=== PATIENT | female | born 1945 | race Caucasian/White ===

== ENCOUNTER 2019-10-25 15:55 | Inpatient (IN) | payer MEDICARE, OTHER, SELFPAY ==
[2019-10-25] VITALS (11 sets, daily range): BP systolic 140–187; BP diastolic 80–104; PULSE 97–126; RESP 24–43; TEMP 36.6–37; O2SAT 3–99; BMI 31.2
--- NOTE | 2019-10-25 16:16 | W.ED.SOB ---
Documented by User: Andre Tran DO 10/26/19 06:36 HPI - SOB/Dyspnea General: Chief Complaint: Shortness of Breath/Dyspnea Stated Complaint: SOB Time Seen by Provider: 10/25/19 15:55 History of Present Illness: HPI Narrative: 78-year-old female comes to clinic shortness of breath she reports she is normally on 4 to 6 L at home when she arrived here they put her on a 10 L mass she was turned down to 6 L/min when I came in the room at 6 L/min on a nasal cannula she was still satting 9897% turned her down to 3 L/min she remained at 96 to 98%. She states she has not been cough anything up she denies any fever denies any chest pain. She last used a nebulizer around 7:00 this morning she is albuterol and Atrovent. She reports having a history of interstitial pulmonary fibrosis. MD elicited complaint: shortness of breath and cough Pertinent past history: other (Pulmonary fibrosis) Onset (ago): hour(s) (2-3) Timing: constant Severity: moderate Exacerbating factors: exertion, movement and coughing Relieving factors: oxygen, rest and bronchodilators Known history of: other (Interstitial fibrosis) Associated symptoms: Reports cough; Deny abdominal pain, chest pain, fever(s), nausea, orthopnea or vomiting Treatment prior to arrival: oxygen and bronchodilator Review of Systems Const: Denies: fever(s), chills, body aches, change in appetite, fatigue or malaise ENMT: Denies: throat pain, ear or mastoid pain, nasal discharge or nasal congestion Card: Denies: chest pain, edema, dyspnea on exertion or orthopnea Resp: Denies: dyspnea, productive cough or non-productive cough GI: Denies: abdominal pain, nausea, vomiting, hematemesis, coffee ground emesis, diarrhea, constipation, bloating, hematochezia or melena : Denies: flank pain, difficulty voiding, dysuria, urinary frequency or urinary urgency Skin/Breast: Denies: rash or pruritus PFS ED PFSH: Medical History (Updated 10/25/19 @ 21:41 by Rosa Garg MD) COPD (chronic obstructive pulmonary disease) Hypertension Interstitial pulmonary fibrosis Oxygen dependent 3 L [id number] Surgical History H/O: hysterectomy History of bilateral knee arthroplasty S/P appendectomy S/P cholecystectomy S/P rotator cuff repair Family History (Updated 10/25/19 @ 21:41 by Rosa Garg MD) Other Lung disease Denies family history of Hyperlipidemia Hypertension Social History (Updated 10/25/19 @ 21:41 by Rosa Garg MD) Smoking and tobacco status: never smoked Alcohol intake: never Substance/Drug Use: never Household members: spouse Housing: House Physical Exam Const: COMMON NORMALS: no acute distress GENERAL APPEARANCE: cooperative and comfortable ORIENTATION/CONSCIOUSNESS: Yes awake, Yes oriented to person, Yes oriented to place and Yes oriented to time HENMT: COMMON NORMALS: normocephalic, atraumatic, hearing grossly normal bilaterally, external ears normal, EAC's normal, TM's normal bilaterally, Normal nasal mucous membranes and turbinates present, moist oral mucous membranes and oropharynx normal HEAD & SCALP: normocephalic and atraumatic NOSE: Normal nasal mucous membranes and turbinates present EXTERNAL EAR: Yes external ears normal EXTERNAL AUDITORY CANAL: EAC's normal TYMPANIC MEMBRANE: TM's normal bilaterally Eye: COMMON NORMALS: Equal, round and reactive pupils present, EOMs intact bilaterally, conjunctivae normal and no scleral icterus CONJUNCTIVA: Yes conjunctivae normal PUPIL: Yes Equal, round and reactive pupils present Neck/C-Spine: COMMON NORMALS: full ROM, no lymphadenopathy, supple and no JVD Lymph: LYMPHATIC: no lymphadenopathy noted and no lymphedema noted Resp: AUSCULTATION: wheezes (Scant) expiratory wheezes and diminished lung sounds Cardio: COMMON NORMALS: no JVD, regular rate, regular rhythm and No murmurs present (Cardio) RATE: regular rate RHYTHM: regular rhythm GI: COMMON NORMALS: Soft to palpation and No hepatosplenomegaly present AUSCULTATION: Yes normoactive bowel sounds PALPATION: Yes Soft to palpation, No Tenderness to palpation present (GI), No Guarding due to palpation present (GI) and Yes No hepatosplenomegaly present Extremity: COMMON NORMALS: normal to inspection, capillary refill normal, no clubbing, cyanosis or edema, no calf tenderness and no pedal edema Neuro: SENSORIUM/ORIENTATION: Yes oriented to person, Yes oriented to place and Yes oriented to time Skin: COMMON NORMALS: no rashes or lesions noted GENERAL SKIN EXAM: no rashes or lesions noted Course Vital Signs: Vital signs: Vital Signs Temperature 97.9 F 10/26/19 08:00 Pulse Rate 112 H 10/26/19 08:00 Respiratory Rate 17 10/26/19 08:00 Blood Pressure 137/87 10/26/19 08:00 Pulse Oximetry 91 10/26/19 08:00 MDM - SOB/Dyspnea MDM Narrative: Medical decision making narrative: CTA of the chest as well as second troponin pending at change of shift care turned over to Dr. Darling. Please see his notes for final diagnosis and disposition Lab Data: Labs: Lab Results 10/25/19 10/25/19 10/25/19 Range/Units 16:16 16:50 16:50 WBC 12.6 H (4.0-10.0) 10^3/ uL RBC 5.16 (4.1-5.3) 10^6/u L Hgb 15.4 H (11.5-15.3) g/dL Hct 49.2 H (37.0-47.0) % MCV 95.3 (81-99) fL MCH 29.8 (28.0-34.0) pg MCHC 31.3 (30.0-36.0) g/dL RDW 13.5 (12.1-15.1) % Plt Count 192 (130-400) 10^3/c mm MPV 11.2 H (7.4-10.4) fL Neut % (Auto) 88.3 % Lymph % (Auto) 9.4 % [place] % (Auto) 1.7 % Eos % (Auto) 0.3 % Baso % (Auto) 0.1 % Neut # (Auto) 11.2 H (1.8-7.7) 10^3/u L Lymph # (Auto) 1.2 (0.8-4.8) 10^3/u L [place] # (Auto) 0.2 (0.2-0.9) 10^3/u L Eos # (Auto) 0.0 (0.0-0.8) 10^3/u L Baso # (Auto) 0.0 (0.0-0.1) 10^3/u L Nucleated RBC % (a uto) 0 % Nucleated RBCs # 0.0 /100WBC Specimen Type Arterial Sample Site Radial, left ABG pH 7.44 (7.35-7.45) ABG pCO2 41.8 (35-45) mmHg ABG pO2 73.6 L (80.0-100.0) mmH g ABG HCO3 28.1 H (22-26) mmol/L ABG O2 Saturation 96.0 ABG Base Excess 3.5 H (-2.0-2.0) mmol/ L [place]vy Test Pos A-a O2 Gradient 140.6 H (5-10) mmHg Hematocrit 48.1 H (37-47) % Hgb O2 Saturation 94.8 L (95-100) % Carboxyhemoglobin 0.8 (0.4-20.1) %THgb Methemoglobin 0.5 (0.4-1.5) % Total Hemoglobin 15.7 (12-16) g/dL Sodium 142.0 139 (131-143) mmol/L Potassium 3.9 4.0 (3.5-5.0) mmol/L Glucose 165.0 H 171 H (70-115) mg/dL Ionized Calcium 1.2 (1.1-1.4) mmol/L O2 Delivery Device Nc O2 Liters/Min 3.5 % FiO2 38.0 % Car Lot Attendant ID glc Chloride 100 (98-107) mmol/L Carbon Dioxide 27 (22-29) mmol/L Anion Gap 16.0 (5-19) BUN 13 (8-23) mg/dL Creatinine 0.6 (0.5-0.9) mg/dL Calculated Osmolal ity 288 (285-295) mOsm/k g Calcium 9.9 (8.5-10.5) mg/dL Total Bilirubin 0.3 (0.15-1.2) mg/dL AST 19 (0-32) U/L ALT 17 (0-33) U/L Alkaline Phosphata se 65 (35-105) IU/L Troponin T Baselin e (0-10) ng/L Troponin T 120 Min liz (0-10) ng/L Delta Troponin T (0-10) ABS# Total Protein 7.3 (6.6-8.7) g/dL Albumin 4.0 (3.5-5.2) g/dL Globulin 3.3 (1.3-4.6) g/dL Urine Color (Yellow) Urine Appearance (CLEAR) Urine pH (5-7) Ur Specific Gravit y (1.005-1.030) Urine Protein (Negative) Urine Glucose (UA) (Normal) Urine Ketones (Negative) Urine Blood (Negative) Urine Nitrate (Negative) Urine Bilirubin (NEGATIVE) Urine Urobilinogen (Negative) mg/dL Ur Leukocyte Roseanna ase (Negative) Urine RBC (0-2) /hpf Urine WBC (0-5) /hpf Ur Squamous Epith Cells (0-5) Amorphous Sediment Urine Bacteria (NONE) 10/25/19 10/25/19 10/25/19 Range/Units 16:50 17:04 18:55 WBC (4.0-10.0) 10^3/ uL RBC (4.1-5.3) 10^6/u L Hgb (11.5-15.3) g/dL Hct (37.0-47.0) % MCV (81-99) fL MCH (28.0-34.0) pg MCHC (30.0-36.0) g/dL RDW (12.1-15.1) % Plt Count (130-400) 10^3/c mm MPV (7.4-10.4) fL Neut % (Auto) % Lymph % (Auto) % [place] % (Auto) % Eos % (Auto) % Baso % (Auto) % Neut # (Auto) (1.8-7.7) 10^3/u L Lymph # (Auto) (0.8-4.8) 10^3/u L [place] # (Auto) (0.2-0.9) 10^3/u L Eos # (Auto) (0.0-0.8) 10^3/u L Baso # (Auto) (0.0-0.1) 10^3/u L Nucleated RBC % (a uto) % Nucleated RBCs # /100WBC Specimen Type Sample Site ABG pH (7.35-7.45) ABG pCO2 (35-45) mmHg ABG pO2 (80.0-100.0) mmH g ABG HCO3 (22-26) mmol/L ABG O2 Saturation ABG Base Excess (-2.0-2.0) mmol/ L [place] Test A-a O2 Gradient (5-10) mmHg Hematocrit (37-47) % Hgb O2 Saturation (95-100) % Carboxyhemoglobin (0.4-20.1) %THgb Methemoglobin (0.4-1.5) % Total Hemoglobin (12-16) g/dL Sodium (131-143) mmol/L Potassium (3.5-5.0) mmol/L Glucose (70-115) mg/dL Ionized Calcium (1.1-1.4) mmol/L O2 Delivery Device O2 Liters/Min % FiO2 % Car Lot Attendant ID Chloride (98-107) mmol/L Carbon Dioxide (22-29) mmol/L Anion Gap (5-19) BUN (8-23) mg/dL Creatinine (0.5-0.9) mg/dL Calculated Osmolal ity (285-295) mOsm/k g Calcium (8.5-10.5) mg/dL Total Bilirubin (0.15-1.2) mg/dL AST (0-32) U/L ALT (0-33) U/L Alkaline Phosphata se (35-105) IU/L Troponin T Baselin e 11 H (0-10) ng/L Troponin T 120 Min liz 12.93 H (0-10) ng/L Delta Troponin T 1.93 (0-10) ABS# Total Protein (6.6-8.7) g/dL Albumin (3.5-5.2) g/dL Globulin (1.3-4.6) g/dL Urine Color Straw (Yellow) Urine Appearance Clear (CLEAR) Urine pH 7 (5-7) Ur Specific Gravit y 1.015 (1.005-1.030) Urine Protein Neg (Negative) Urine Glucose (UA) Norm (Normal) Urine Ketones Negative (Negative) Urine Blood 2+ H (Negative) Urine Nitrate Negative (Negative) Urine Bilirubin Neg (NEGATIVE) Urine Urobilinogen Norm (Negative) mg/dL Ur Leukocyte Roseanna ase Negative (Negative) Urine RBC 0-4 H (0-2) /hpf Urine WBC 0-4 H (0-5) /hpf Ur Squamous Epith Cells 0-4 H (0-5) Amorphous Sediment 1+ Urine Bacteria Trace (NONE) Discharge Plan Discharge Admit Provider: Rosa Garg Discharge Date/Time: 10/25/19 22:50 Coding Level of Care Code ED Esthetic Dermatologist for Chg Fwd Exam Comprehensive Documented by User: Flaco Darling, 10/26/19 08:31 HPI - SOB/Dyspnea General: Chief Complaint: Shortness of Breath/Dyspnea Stated Complaint: SOB Time Seen by Provider: 10/25/19 15:55 PFSH ED PFSH: Medical History (Updated 10/25/19 @ 21:41 by Rosa Garg MD) COPD (chronic obstructive pulmonary disease) Hypertension Interstitial pulmonary fibrosis Oxygen dependent 3 L [id number] Surgical History H/O: hysterectomy History of bilateral knee arthroplasty S/P appendectomy S/P cholecystectomy S/P rotator cuff repair Family History (Updated 10/25/19 @ 21:41 by Rosa Garg MD) Other Lung disease Denies family history of Hyperlipidemia Hypertension Social History (Updated 10/25/19 @ 21:41 by Rosa Garg MD) Smoking and tobacco status: never smoked Alcohol intake: never Substance/Drug Use: never Household members: spouse Housing: House Course Consultations: Consultation #1: radha Vital Signs: Vital signs: Vital Signs Temperature 97.9 F 10/26/19 08:00 Pulse Rate 112 H 10/26/19 08:00 Respiratory Rate 17 10/26/19 08:00 Blood Pressure 137/87 10/26/19 08:00 Pulse Oximetry 91 10/26/19 08:00 MDM - SOB/Dyspnea MDM Narrative: Medical decision making narrative: This is a 74-year-old female with significant pulmonary fibrosis history. She presents with chest discomfort and some shortness of breath. No fever. She was checked out to me by Dr. Tran. Chest x-ray shows significant pulmonary fibrosis. Her white blood cell count was mildly elevated. The question was did she have a pneumonia on top of her pulmonary fibrosis, or was this an exacerbation of pulmonary hypertension. CTA was ordered. There is no pulmonary embolus. There is no definite infiltrate. This is likely pulmonary hypertension. She will come in for steroids, diuretics, nitroglycerin, etc. Lab Data: Labs: Lab Results 10/25/19 10/25/19 10/25/19 Range/Units 16:16 16:50 16:50 WBC 12.6 H (4.0-10.0) 10^3/ uL RBC 5.16 (4.1-5.3) 10^6/u L Hgb 15.4 H (11.5-15.3) g/dL Hct 49.2 H (37.0-47.0) % MCV 95.3 (81-99) fL MCH 29.8 (28.0-34.0) pg MCHC 31.3 (30.0-36.0) g/dL RDW 13.5 (12.1-15.1) % Plt Count 192 (130-400) 10^3/c mm MPV 11.2 H (7.4-10.4) fL Neut % (Auto) 88.3 % Lymph % (Auto) 9.4 % [place] % (Auto) 1.7 % Eos % (Auto) 0.3 % Baso % (Auto) 0.1 % Neut # (Auto) 11.2 H (1.8-7.7) 10^3/u L Lymph # (Auto) 1.2 (0.8-4.8) 10^3/u L [place] # (Auto) 0.2 (0.2-0.9) 10^3/u L Eos # (Auto) 0.0 (0.0-0.8) 10^3/u L Baso # (Auto) 0.0 (0.0-0.1) 10^3/u L Nucleated RBC % (a uto) 0 % Nucleated RBCs # 0.0 /100WBC Specimen Type Arterial Sample Site Radial, left ABG pH 7.44 (7.35-7.45) ABG pCO2 41.8 (35-45) mmHg ABG pO2 73.6 L (80.0-100.0) mmH g ABG HCO3 28.1 H (22-26) mmol/L ABG O2 Saturation 96.0 ABG Base Excess 3.5 H (-2.0-2.0) mmol/ L [place] Test Pos A-a O2 Gradient 140.6 H (5-10) mmHg Hematocrit 48.1 H (37-47) % Hgb O2 Saturation 94.8 L (95-100) % Carboxyhemoglobin 0.8 (0.4-20.1) %THgb Methemoglobin 0.5 (0.4-1.5) % Total Hemoglobin 15.7 (12-16) g/dL Sodium 142.0 139 (131-143) mmol/L Potassium 3.9 4.0 (3.5-5.0) mmol/L Glucose 165.0 H 171 H (70-115) mg/dL Ionized Calcium 1.2 (1.1-1.4) mmol/L O2 Delivery Device Nc O2 Liters/Min 3.5 % FiO2 38.0 % Car Lot Attendant ID glc Chloride 100 (98-107) mmol/L Carbon Dioxide 27 (22-29) mmol/L Anion Gap 16.0 (5-19) BUN 13 (8-23) mg/dL Creatinine 0.6 (0.5-0.9) mg/dL Calculated Osmolal ity 288 (285-295) mOsm/k g Calcium 9.9 (8.5-10.5) mg/dL Total Bilirubin 0.3 (0.15-1.2) mg/dL AST 19 (0-32) U/L ALT 17 (0-33) U/L Alkaline Phosphata se 65 (35-105) IU/L Troponin T Baselin e (0-10) ng/L Troponin T 120 Min liz (0-10) ng/L Delta Troponin T (0-10) ABS# Total Protein 7.3 (6.6-8.7) g/dL Albumin 4.0 (3.5-5.2) g/dL Globulin 3.3 (1.3-4.6) g/dL Urine Color (Yellow) Urine Appearance (CLEAR) Urine pH (5-7) Ur Specific Gravit y (1.005-1.030) Urine Protein (Negative) Urine Glucose (UA) (Normal) Urine Ketones (Negative) Urine Blood (Negative) Urine Nitrate (Negative) Urine Bilirubin (NEGATIVE) Urine Urobilinogen (Negative) mg/dL Ur Leukocyte Roseanna ase (Negative) Urine RBC (0-2) /hpf Urine WBC (0-5) /hpf Ur Squamous Epith Cells (0-5) Amorphous Sediment Urine Bacteria (NONE) 10/25/19 10/25/19 10/25/19 Range/Units 16:50 17:04 18:55 WBC (4.0-10.0) 10^3/ uL RBC (4.1-5.3) 10^6/u L Hgb (11.5-15.3) g/dL Hct (37.0-47.0) % MCV (81-99) fL MCH (28.0-34.0) pg MCHC (30.0-36.0) g/dL RDW (12.1-15.1) % Plt Count (130-400) 10^3/c mm MPV (7.4-10.4) fL Neut % (Auto) % Lymph % (Auto) % [place] % (Auto) % Eos % (Auto) % Baso % (Auto) % Neut # (Auto) (1.8-7.7) 10^3/u L Lymph # (Auto) (0.8-4.8) 10^3/u L [place] # (Auto) (0.2-0.9) 10^3/u L Eos # (Auto) (0.0-0.8) 10^3/u L Baso # (Auto) (0.0-0.1) 10^3/u L Nucleated RBC % (a uto) % Nucleated RBCs # /100WBC Specimen Type Sample Site ABG pH (7.35-7.45) ABG pCO2 (35-45) mmHg ABG pO2 (80.0-100.0) mmH g ABG HCO3 (22-26) mmol/L ABG O2 Saturation ABG Base Excess (-2.0-2.0) mmol/ L [place] Test A-a O2 Gradient (5-10) mmHg Hematocrit (37-47) % Hgb O2 Saturation (95-100) % Carboxyhemoglobin (0.4-20.1) %THgb Methemoglobin (0.4-1.5) % Total Hemoglobin (12-16) g/dL Sodium (131-143) mmol/L Potassium (3.5-5.0) mmol/L Glucose (70-115) mg/dL Ionized Calcium (1.1-1.4) mmol/L O2 Delivery Device O2 Liters/Min % FiO2 % Car Lot Attendant ID Chloride (98-107) mmol/L Carbon Dioxide (22-29) mmol/L Anion Gap (5-19) BUN (8-23) mg/dL Creatinine (0.5-0.9) mg/dL Calculated Osmolal ity (285-295) mOsm/k g Calcium (8.5-10.5) mg/dL Total Bilirubin (0.15-1.2) mg/dL AST (0-32) U/L ALT (0-33) U/L Alkaline Phosphata se (35-105) IU/L Troponin T Baselin e 11 H (0-10) ng/L Troponin T 120 Min liz 12.93 H (0-10) ng/L Delta Troponin T 1.93 (0-10) ABS# Total Protein (6.6-8.7) g/dL Albumin (3.5-5.2) g/dL Globulin (1.3-4.6) g/dL Urine Color Straw (Yellow) Urine Appearance Clear (CLEAR) Urine pH 7 (5-7) Ur Specific Gravit y 1.015 (1.005-1.030) Urine Protein Neg (Negative) Urine Glucose (UA) Norm (Normal) Urine Ketones Negative (Negative) Urine Blood 2+ H (Negative) Urine Nitrate Negative (Negative) Urine Bilirubin Neg (NEGATIVE) Urine Urobilinogen Norm (Negative) mg/dL Ur Leukocyte Roseanna ase Negative (Negative) Urine RBC 0-4 H (0-2) /hpf Urine WBC 0-4 H (0-5) /hpf Ur Squamous Epith Cells 0-4 H (0-5) Amorphous Sediment 1+ Urine Bacteria Trace (NONE) Discharge Plan Discharge Admit Provider: Rosa Garg Discharge Date/Time: 10/25/19 22:50 Coding Level of Care Code ED Esthetic Dermatologist for Chg Fwd Exam Comprehensive
--- NOTE | 2019-10-25 16:23 | XRR_ITS ---
PROCEDURE INFORMATION: Exam: XR Chest, 1 View Exam date and time: 10/25/2019 4:34 PM Age: 74 years old Clinical indication: Dyspnea; Additional info: Dyspnea/cough TECHNIQUE: Imaging protocol: XR of the chest Views: 1 view. COMPARISON: No relevant prior studies available. FINDINGS: Lungs: Bilateral diffuse reticulonodular interstitial lung disease. Suspect pulmonary fibrosis. Cannot exclude with confidence underlying interstitial pneumonitis without prior studies available for review. No visible consolidated alveolar airspace disease. Pleural space: Unremarkable. No visible pleural effusion. No visible pneumothorax. Heart/Mediastinum: Cardiac structures and configuration appear unremarkable for age. Bones/joints: Right total shoulder prosthesis. Previous left rotator cuff repair. Age-appropriate degenerative disease. Other findings: No prior studies available for review. XR/XR chest 1V portable [id number] IMPRESSION: Bilateral diffuse reticulonodular interstitial lung disease. Suspect pulmonary fibrosis. Cannot exclude with confidence underlying interstitial pneumonitis without prior studies available for review. No visible consolidated alveolar airspace disease.
--- NOTE | 2019-10-25 16:24 | ECG_ITS ---
[facility] Test Date: 2019-10-25 Pat Name: Manisha Gautam Department: Room: Gender: Female Chart Computer: : 1945 Requested By: Andre Caruso Order Number: [id number] Enmanuel MD: John Moreno M.D. Measurements Intervals [place] Rate: 114 P: 18 CA: 175 QRS: -13 QRSD: 94 T: -6 QT: 378 QTc: 521 Interpretive Statements SINUS TACHYCARDIA POSSIBLE LEFT ATRIAL ENLARGEMENT [-0.1mV P WAVE IN V1/V2] POSSIBLE LEFT VENTRICULAR HYPERTROPHY [VOLTAGE CRITERIA PLUS LAE OR QRS WIDENING] POSSIBLE ANTERIOR MYOCARDIAL INFARCTION , OF INDETERMINATE AGE [30 ms Q WAVE IN V3/V4, OR R < 0.2 mV IN V4] No previous ECG available for comparison Electronically Signed On 10-26-2019 13:47:23 CDT by John Moreno M.D. [id number] f
[2019-10-25 16:26] LABS: ABG PCO2 41.8 mmHg (35-45); ABG PH Result 7.44 (7.35-7.45); Alveolar-Arterial Oxygen Gradi 140.6 mmHg (5-10); Arterial Blood Gas Hematocrit 48.1 % (37-47); Base Excess ABG 3.5 mmol/L (-2.0-2.0); Blood Gas Allen Test Pos; Blood Gas LPM 3.5 %; Blood Gas Operator Identificat glc; Blood Gas Sample Site Radial, left; Blood Gas Sample Type Arterial; Carboxyhemoglobin 0.8 %THgb (0.4-20.1); HCO3 ABG 28.1 mmol/L (22-26); HGB O2 Sat 94.8 % (95-100); Ionized Calcium Level - ABG 1.2 mmol/L (1.1-1.4); Methemoglobin 0.5 % (0.4-1.5); Oxygen Device NC; PO2 ABG 73.6 mmHg (80.0-100.0); Potassium Level - ABG 3.9 mmol/L (3.5-5.0); Total Hemoglobin 15.7 g/dL (12-16)
[2019-10-25] MEDS: ipratropium-albuterol 3 mL Neb INHALATION (16:38)
[2019-10-25 17:04] LABS: Basophils % 0.1 %; Eosinophils % 0.3 %; Hematocrit 49.2 % (37.0-47.0); Hemoglobin 15.4 g/dL (11.5-15.3); Lymphocytes # 1.2 10^3/uL (0.8-4.8); Lymphocytes % 9.4 %; Mean Corpuscular HGB Conc 31.3 g/dL (30.0-36.0); Mean Corpuscular Hemoglobin 29.8 pg (28.0-34.0); Mean Corpuscular Volume 95.3 fL (81-99); Mean Platelet Volume 11.2 fL (7.4-10.4); Monocytes # 0.2 10^3/uL (0.2-0.9); Monocytes % 1.7 %; Neutrophils # 11.2 10^3/uL (1.8-7.7); Neutrophils % 88.3 %; Nucleated Red Blood Cells % 0 %; Platelet Count 192 10^3/cmm (130-400); Red Blood Count 5.16 10^6/uL (4.1-5.3); Red Cell Distribution Width 13.5 % (12.1-15.1); White Blood Count 12.6 10^3/uL (4.0-10.0)
[2019-10-25 17:26] LABS: Alanine Aminotransferase 17 U/L (0-33); Alkaline Phosphatase 65 IU/L (35-105); Aspartate Amino Transferase 19 U/L (0-32); Blood Urea Nitrogen 13 mg/dL (8-23); Calcium 9.9 mg/dL (8.5-10.5); Carbon Dioxide 27 mmol/L (22-29); Chloride 100 mmol/L (98-107); Globulin 3.3 g/dL (1.3-4.6); Glucose 171 mg/dL (65-115); Osmolality Calculated 288 mOsm/kg (285-295); Sodium 139 mmol/L (136-145); Total Bilirubin 0.3 mg/dL (0.15-1.2); Total Protein 7.3 g/dL (6.6-8.7)
[2019-10-25 17:29] LABS: Troponin(5th) Baseline 11 ng/L (0-10)
[2019-10-25 17:45] LABS: Add Urine Microscopic? YES; Bilirubin Urine Neg (NEGATIVE); Blood Urine 2+ (Negative); Glucose Urine UA Norm (Normal); Ketones Urine Negative (Negative); Leukocyte Esterase Urine Negative (Negative); Nitrate Urine Negative (Negative); Protein Urine Neg (Negative); Specific Gravity, Urine 1.015 (1.005-1.030); Urine Appearance Clear (CLEAR); Urine Color Straw (Yellow); Urobilinogen Urine Norm (Negative); pH Urine 7 (5-7)
[2019-10-25 17:52] LABS: Add Urine Culture? No; Amorphous Sediment Urine 1+; Bacteria Urine TRACE; RBC Urine 0-4 /hpf (0-2); Squamous Epithelial Cell Urine 0-4 (0-5); WBC Urine 0-4 /hpf (0-5)
--- NOTE | 2019-10-25 18:24 | ECG_ITS ---
[facility] Test Date: 2019-10-25 Pat Name: Manisha Gautam Department: Room: Gender: Female Manager Of Security: : 1945 Requested By: Andre Caruso Order Number: [id number] Enmanuel MD: John Moreno M.D. Measurements Intervals [place] Rate: 115 P: 5 VT: 148 QRS: -10 QRSD: 78 T: -1 QT: 374 QTc: 519 Interpretive Statements SINUS TACHYCARDIA POSSIBLE LEFT ATRIAL ENLARGEMENT [-0.1mV P WAVE IN V1/V2] POSSIBLE LEFT VENTRICULAR HYPERTROPHY [VOLTAGE CRITERIA PLUS LAE OR QRS WIDENING] ANTERIOR MYOCARDIAL INFARCTION , PROBABLY RECENT [40+ ms Q WAVE AND/OR ST/T ABNORMALITY IN V3/V4] INFERIOR MYOCARDIAL INFARCTION , OF INDETERMINATE AGE [40+ ms Q WAVE AND/OR ST/T ABNORMALITY IN II/aVF] ACUTE [place] Compared to ECG 10/25/2019 16:44:40 No significant changes Electronically Signed On 10-26-2019 14:00:15 CDT by John Moreno M.D. [id number]
--- NOTE | 2019-10-25 18:29 | CTR_ITS ---
PROCEDURE INFORMATION: Exam: CT Angiography Chest With Contrast Exam date and time: 10/25/2019 7:30 PM Age: 74 years old Clinical indication: Shortness of breath; Prior surgery; Surgery date: 6+ months; Surgery type: Shoulder; Patient HX: SOB; Additional info: Abnomral cxr - dyspnea TECHNIQUE: Imaging protocol: Computed tomographic angiography of the chest with intravenous contrast. 3D rendering: MIP and/or 3D reconstructed images were created by the technologist. Radiation optimization: All CT scans at this facility use at least one of these dose optimization techniques: automated exposure control; mA and/or kV adjustment per patient size (includes targeted exams where dose is matched to clinical indication); or iterative reconstruction. Contrast material: OMNI 350; Contrast volume: 95 ml; Contrast route: INTRAVENOUS (IV); COMPARISON: CR XR chest 1V portable [id number] 10/25/2019 4:23 PM RADIATION DOSE METRICS: Total DLP (mGy-cm): 494.75 FINDINGS: Pulmonary arteries: No visible pulmonary embolism/pulmonary arterial thrombus. Pulmonary hypertension. Aorta: The thoracic aorta is nonaneurysmal. Moderate arterial sclerotic disease. Lungs: Advanced centrilobular and panlobular emphysema. Peripheral acinar emphysema. Pulmonary fibrosis. Varicose bronchiectasis right lower lobe. Bibasilar cystic bronchiectasis. Pleural space: Unremarkable. No pneumothorax. No pleural effusion. Heart: Cardiac structures and configuration cardiomegaly. Left ventricular hypertrophy. Coronary artery disease. No visible pericardial effusion. Lymph nodes: Bilateral moderately prominent hilar lymph nodes. Clinical significance indeterminate. Bones/joints: Advanced degenerative disease and degenerative disc disease of the spine with increased thoracic kyphosis. Osteopenia/osteoporosis. No visible acute osseous abnormality. Scoliosis. Soft tissues: Unremarkable for age. CT/CT angio chest PE protcl [id number] IMPRESSION: 1. No visible pulmonary embolism/pulmonary arterial thrombus. 2. Pulmonary hypertension. 3. Extensive chronic lung disease as detailed in text above. 4. Bilateral moderately prominent hilar lymph nodes. Radiation Dose CTDIVOL = (mGy): DLP = 494.75 (mGy-cm)
--- NOTE | 2019-10-25 18:47 | PC.NURSE ---
EKG done at 1845 and shown to ER doctor
[2019-10-25] MEDS: hyDRALAzine 20 mg/mL INJ 1 mL 5 MG IVP (18:57)
[2019-10-25] MEDS: amlodipine 5 mg Tablet PO (18:58)
[2019-10-25 19:26] LABS: Troponin 5 2HR 12.93 ng/L (0-10); Troponin 5 2HR Delta 1.93 ABS# (0-10)
[2019-10-25] MEDS: iohexol 350 mg/mL 100 mL Btl IV (19:45)
[2019-10-25] MEDS: nitroglycerin 1 gm/inch oint Pkt 1 INCH TOPICAL (20:47)
[2019-10-25] MEDS: FUROsemide 10 mg/mL SDV 10mL 60 MG IVP (20:47)
--- NOTE | 2019-10-25 21:02 | PM.HP ---
Providers/Chief Complaint Primary Care Provider: Yonny Arias Chief Complaint: SOB History of Present Illness Manisha Gautam is a 74 year old female who carries diagnosis of pulmonary fibrosis, oxygen dependent COPD 3 L [id number], pulmonary hypertension came in with chief complaint of palpitations. Patient is stating that at home she uses 3 to 4 L, she is leading a sedentary lifestyle, she recently moved from [place]. 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 She has not noticed any fever, sputum production, diarrhea, chest pain. She thinks her shortness of breath is at baseline. Today after her bowel movement she started experiencing extreme anxiety, when she checked her pulse it was persistently in 130s. She did not notice any chest pain, palpitations. She is endorsing to decrease fluid intake. She decided to come to the ED for further evaluation. Diagnostics in the ER revealed persistent sinus tachycardia in 120s, she was hypertensive 160s/90s, CTA chest did not reveal PE, no acute infiltrates, it shows bronchiectasis lung zones, she has been afebrile, she has received DuoNeb and Solu-Medrol. Normal pH Patient is stating that her prednisone has been tapered to 10 mg daily instead of every 6 hours. She mostly stays constipated, has not noticed any bleeding recently. Review of Systems Const: Reports: body aches, change in appetite and fatigue; Denies: fever(s) or chills Eyes: Denies: change in vision ENMT: Denies: throat pain Card: Reports: dyspnea on exertion; Denies: chest pain, palpitations, swelling of feet/ankles, lightheadedness or orthopnea Resp: Reports: dyspnea and non-productive cough GI: Reports: constipation; Denies: abdominal pain, nausea or vomiting : Denies: flank pain Musc: Denies: neck pain Skin/Breast: Denies: rash Neuro: Denies: headache(s) Psych: Reports: anxiety, mood swings and panic attacks Endo: Denies: polyuria Nabil/Lymph: Denies: easy bruising All/Imm: Denies: urticaria Medications/Allergies Home Medications Medication Instructions Recorded Confirmed Last Taken Type aspirin [Aspirin Low Dose] 81 mg PO DAILY 10/25/19 10/25/19 10/25/19 08:00 History buspirone 15 mg PO TID 10/25/19 10/25/19 10/25/19 12:00 History docusate sodium 100 mg PO DAILY 10/25/19 10/25/19 10/25/19 08:00 History elderberry fruit and flower 1 cap PO DAILY 10/25/19 10/25/19 10/25/19 08:00 History metoprolol succinate 25 mg PO DAILY 10/25/19 10/25/19 10/25/19 08:00 History multivit with min-folic acid 200 mcg PO DAILY 10/25/19 10/25/19 10/25/19 08:00 History [Adult Multivitamin Gummies] omeprazole 40 mg PO DAILY 10/25/19 10/25/19 10/25/19 08:00 History prednisone 10 mg PO Q6H 10/25/19 10/25/19 10/25/19 12:00 History turmeric 200 mg PO DAILY 10/25/19 10/25/19 10/25/19 09:00 History Allergies Allergy/AdvReac Type Severity Reaction Status Date / Time Penicillins Allergy Intermediate ALGY-Rash Verified 10/25/19 16:28 PFSH Acute PFSH: Medical History (Updated 10/25/19 @ 21:41 by Rosa Garg MD) COPD (chronic obstructive pulmonary disease) Hypertension Interstitial pulmonary fibrosis Oxygen dependent 3 L [id number] Surgical History H/O: hysterectomy History of bilateral knee arthroplasty S/P appendectomy S/P cholecystectomy S/P rotator cuff repair Family History (Updated 10/25/19 @ 21:41 by Rosa Garg MD) Other Lung disease Denies family history of Hyperlipidemia Hypertension Social History (Updated 10/25/19 @ 21:41 by Rosa Garg MD) Smoking and tobacco status: never smoked Alcohol intake: never Substance/Drug Use: never Household members: spouse Housing: House Vitals/I&O/Wt Last Vital Signs Temp 97.9 F 10/25/19 16:06 Pulse 116 H 10/25/19 20:49 Resp 32 H 10/25/19 20:49 BP 160/90 10/25/19 20:49 Pulse Ox 96 10/25/19 20:49 Weight last 48 hrs Weight 72.575 kg Physical Exam Narrative: EXAM NARRATIVE: Head to toe examination Patient seems very anxious, and dehydrated Dry buccal mucous membrane and cracked lips No active respiratory distress She saturating well on 3 L nasal cannula 92%, sinus tachycardia heart rate 120s systolic blood pressure 160 Bilateral breath sounds without active wheezing, coarse crepitation Abdomen soft nontender nondistended Neurologically nonfocal exam Irritable very anxious mood Coarse tremors EOMI, PERRLA No extremity edema or ulcer Data : 10/25/19 16:50 10/25/19 16:50 A&P Assessment and plan (1) Sinus tachycardia: Status: Acute (2) Dehydration: Status: Acute (3) Anxiety: Status: Acute (4) Hypertension: Status: Acute (5) Interstitial pulmonary fibrosis: Status: Acute (6) COPD (chronic obstructive pulmonary disease): Status: Acute Additional A&P Information Sinus tachycardia PE ruled out No active pneumonia Patient takes metoprolol succinate at home My differential would include dehydration and anxiety We will start her on IV fluids, clinically looks dehydrated, start her on antidepressant EKG shows sinus tachycardia without ischemic or infarctive changes Hypertensive urgency Continue her metoprolol succinate, I would add amlodipine 10 mg I believe hypotension is secondary to chronic use of steroids and active anxiety Interstitial pulmonary fibrosis Currently on prednisone 10 mg a day has been tapered down from 10 mg every 6 hours No active pneumonia 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
[2019-10-25] MEDS: metoprolol tartrate 1 mg/1 mL SDV 5 mL 5 MG IV (21:26)
--- NOTE | 2019-10-25 22:24 | ECG_ITS ---
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 Measurements Intervals [place] Rate: 103 P: NV: -1 QRS: -11 QRSD: 117 T: -1 QT: 348 QTc: 458 Interpretive Statements Sinus tachycardia VOLTAGE CRITERIA FOR LVH [MEETS CRITERIA IN ONE OF: R(aVL), S(V1), R(V5), R(V5/V6)+S(V1)] POSSIBLE ANTERIOR MYOCARDIAL INFARCTION [30 ms Q WAVE IN V3/V4, OR R < 0.2 mV IN V4], OF INDETERMINATE AGE Compared to ECG 10/25/2019 18:52:55 Sinus tachycardia no longer present Myocardial infarct finding still present Electronically Signed On 10-26-2019 14:02:44 CDT by John Moreno M.D. [email or web address] general [email or web address] Specialistscl[email or web address]/store/[id number]
--- NOTE | 2019-10-25 23:00 | PC.NURSE ---
Vital Signs Pt. respirations high d/t sob after repositioning d/t clearing linens from under patient. Pt. O2 sat is increasing and respirations are starting to slow after pulling patient up in bed and sitting HOB up. Patient care nurse at bedside.
[2019-10-26] VITALS (11 sets, daily range): BP systolic 121–148; BP diastolic 70–87; PULSE 97–112; RESP 17–34; TEMP 36.2–36.7; O2SAT 91–95
[2019-10-26] MEDS: LORazepam 2 mg/mL INJ 1 mL 1 MG IVP (00:09)
[2019-10-26] MEDS: enoxaparin 40 mg/0.4 mL Syringe SUBCUT (00:09)
[2019-10-26] MEDS: amlodipine 10 mg Tablet PO ×2 (00:09→09:10)
[2019-10-26] MEDS: ipratropium-albuterol 3 mL Neb INHALATION ×5 (00:14→20:51)
--- NOTE | 2019-10-26 01:23 | PC.NURSE ---
Nitro paste removed per doctor.
[2019-10-26 06:31] LABS: Basophils % 0.1 %; Hemoglobin 16.2 g/dL (11.5-15.3); Lymphocytes # 1.8 10^3/uL (0.8-4.8); Lymphocytes % 15.4 %; Mean Corpuscular HGB Conc 32.4 g/dL (30.0-36.0); Mean Corpuscular Hemoglobin 30.9 pg (28.0-34.0); Mean Corpuscular Volume 95.2 fL (81-99); Mean Platelet Volume 11.7 fL (7.4-10.4); Monocytes # 0.2 10^3/uL (0.2-0.9); Monocytes % 1.9 %; Neutrophils # 9.3 10^3/uL (1.8-7.7); Neutrophils % 82.2 %; Nucleated Red Blood Cells % 0 %; Platelet Count 219 10^3/cmm (130-400); Red Blood Count 5.25 10^6/uL (4.1-5.3); Red Cell Distribution Width 13.7 % (12.1-15.1); White Blood Count 11.3 10^3/uL (4.0-10.0)
[2019-10-26 06:59] LABS: Anion Gap 18.1 (5-19); Blood Urea Nitrogen 15 mg/dL (8-23); Calcium 10.6 mg/dL (8.5-10.5); Carbon Dioxide 29 mmol/L (22-29); Chloride 97 mmol/L (98-107); Glucose 129 mg/dL (65-115); Osmolality Calculated 288 mOsm/kg (285-295); Potassium 4.1 mmol/L (3.5-5.1); Sodium 140 mmol/L (136-145)
[2019-10-26] MEDS: docusate sodium 100 mg Capsule PO (09:09)
[2019-10-26] MEDS: aspirin 81 mg EC Tablet PO (09:10)
[2019-10-26] MEDS: metoprolol succinate ER (24 HR) 25 mg Tablet PO (09:10)
[2019-10-26] MEDS: predniSONE 10 mg Tablet PO (09:10)
[2019-10-26] MEDS: pantoprazole DR 40 mg Tablet PO (09:10)
[2019-10-26] MEDS: ALPRAZolam 0.25 mg Tablet PO ×2 (11:39→20:36)
[2019-10-26] MEDS: bisacodyl 10 mg Supp PR (14:31)
[2019-10-26] MEDS: levofloxacin-dextrose 5 % 750 MG/150 ML PREMIX 100 MG IV (14:31)
--- NOTE | 2019-10-26 17:24 | PC.NURSE ---
Vial signs enetered for Krystol nurses aid at 1600
--- NOTE | 2019-10-26 19:39 | PM.PN ---
Subjective Subjective: Interval history: She states she is feeling not as bad as she was at home. She reports that she has history of recurrent fast heart rates, although at home usually they settle down into 80s-90s when she is at rest. She has been coughing more recently. Reports occasionally bringing up some phlegm which previously was white, but now is yellow. Vitals/I&O/Wt Last Vital Signs Temp 98.1 F 10/26/19 16:00 Pulse 110 H 10/26/19 16:00 Resp 18 10/26/19 16:00 BP 148/74 10/26/19 16:00 Pulse Ox 92 10/26/19 16:00 10/26/19 10/26/19 10/26/19 06:59 14:59 22:59 Intake Total 30 / 30 240 / 240 Output Total 225 / 225 200 / 200 Balance -195 / -195 -200 / -200 240 / 40 Weight last 48 hrs Weight 72.575 kg Physical Exam Const: COMMON NORMALS: no acute distress and patient oriented x3 HENMT: COMMON NORMALS: oropharynx normal Neck/C-Spine: COMMON NORMALS: no JVD Resp: COMMON NORMALS: normal respiratory effort and clear to auscultation bilaterally AUSCULTATION: clear to auscultation bilaterally Cardio: COMMON NORMALS: no JVD, regular rhythm, S1 normal heart sound present, S2 normal heart sound present and No murmurs present (Cardio) RHYTHM: regular rhythm HEART SOUNDS: S1 normal heart sound present and S2 normal heart sound present GI: COMMON NORMALS: Normal to inspection, nondistended, normoactive bowel sounds present, Soft to palpation and non-tender PALPATION: Yes Soft to palpation Extremity: COMMON NORMALS: no joint enlargement and no pedal edema Neuro: COMMON NORMALS: patient oriented x3 and moves all extremities Skin: COMMON NORMALS: no rashes or lesions noted GENERAL SKIN EXAM: no rashes or lesions noted Data : 10/26/19 05:49 10/26/19 05:49 A&P Assessment and plan (1) Sinus tachycardia: Per discussion with her this is actually better than it was at home. They state at home it was 120s to 130s. Does not appear to have a clear cause. Initially atrial flutter machine read on 1 of the EKGs, however, this does not clearly appear to be flutter. She does get quite anxious, and discussed with her symptoms may be secondary to her chronic lung disease as she has significant fibrosis, bronchiectasis, although at the same time has leukocytosis together with a sinus tachycardia. She appears to be at baseline oxygen, however, reports coughing and coughing up some yellow sputum which is a change in color from the usual white. Somewhat coarse breathing sounds noted, perhaps a very faint wheeze. Discussed with her my concern is for pulmonary infection, and currently given sinus tachycardia, leukocytosis cannot entirely rule out sepsis, although this is less likely. Requested sputum and blood cultures. Start Levaquin. Continue metoprolol, although we will switch to twice daily dosing. Added Xanax for episodes of anxiety. She has no chest pain. EKG does show a few nonspecific changes, troponin is mildly elevated. Overall she would benefit from stress testing although non-STEMI does not appear likely at this stage. If heart rate decreases further, will obtain additional assessment by TTE. Status: Acute (2) Dehydration: Received IV fluid. Encourage oral hydration. Status: Acute (3) Anxiety: Xanax as needed. Discussed with her and her unfortunately severe anxiety can often accompany chronic lung disease. Encouraged her to follow-up with [facility] and she states she will look into making appointment. Status: Acute (4) Hypertension: Monitor blood pressures. Started on amlodipine. Continue metoprolol. Status: Acute (5) Interstitial pulmonary fibrosis: Follows with director of marketing analytics in [place]. Continues on prednisone 10 mg. Status: Acute (6) COPD (chronic obstructive pulmonary disease): Status: Acute Attestations Medical Necessity Statement*: Admission of over 2 midnights is going to be needed for assessment of management of dyspnea, suspected pulmonary infection in the setting of chronic lung disease including bronchiectasis and pulmonary fibrosis, with persistent sinus tachycardia, possible sepsis. 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
[2019-10-26] MEDS: guaiFENesin-dextromethorphan UDC 10 mL PO (20:35)
[2019-10-26] MEDS: metoprolol tartrate 25 mg Tablet PO (20:36)
[2019-10-26] MEDS: polyethylene glycol 3350 Pkt 17 gm PO (20:37)
[2019-10-27] VITALS (12 sets, daily range): BP systolic 96–120; BP diastolic 58–73; PULSE 83–105; RESP 17–22; TEMP 36.3–37.1; O2SAT 90–100
[2019-10-27] MEDS: ipratropium-albuterol 3 mL Neb INHALATION ×4 (02:12→21:10)
[2019-10-27] MEDS: enoxaparin 40 mg/0.4 mL Syringe SUBCUT (02:26)
[2019-10-27 04:19] LABS: Basophils % 0.2 %; Eosinophils # 0.1 10^3/uL (0.0-0.8); Eosinophils % 0.6 %; Hematocrit 47.9 % (37.0-47.0); Hemoglobin 15.1 g/dL (11.5-15.3); Lymphocytes # 4.1 10^3/uL (0.8-4.8); Lymphocytes % 23.4 %; Mean Corpuscular HGB Conc 31.5 g/dL (30.0-36.0); Mean Corpuscular Hemoglobin 30.1 pg (28.0-34.0); Mean Corpuscular Volume 95.4 fL (81-99); Mean Platelet Volume 12.3 fL (7.4-10.4); Monocytes # 1.3 10^3/uL (0.2-0.9); Monocytes % 7.5 %; Nucleated Red Blood Cells % 0 %; Platelet Count 197 10^3/cmm (130-400); Red Blood Count 5.02 10^6/uL (4.1-5.3); Red Cell Distribution Width 13.6 % (12.1-15.1); White Blood Count 17.6 10^3/uL (4.0-10.0)
[2019-10-27 04:40] LABS: Alanine Aminotransferase 28 U/L (0-33); Albumin Level 3.9 g/dL (3.5-5.2); Alkaline Phosphatase 58 IU/L (35-105); Anion Gap 15.9 (5-19); Blood Urea Nitrogen 28 mg/dL (8-23); Calcium 10.1 mg/dL (8.5-10.5); Carbon Dioxide 33 mmol/L (22-29); Chloride 96 mmol/L (98-107); Globulin 3.1 g/dL (1.3-4.6); Glucose 115 mg/dL (65-115); Osmolality Calculated 290 mOsm/kg (285-295); Potassium 3.9 mmol/L (3.5-5.1); Sodium 141 mmol/L (136-145); Total Bilirubin 0.4 mg/dL (0.15-1.2)
[2019-10-27 06:57] LABS: Aspartate Amino Transferase 30 U/L (0-32)
[2019-10-27] MEDS: docusate sodium 100 mg Capsule PO (08:37)
[2019-10-27] MEDS: bisacodyl 10 mg Supp PR (08:37)
[2019-10-27] MEDS: aspirin 81 mg EC Tablet PO (08:37)
[2019-10-27] MEDS: predniSONE 10 mg Tablet PO (08:37)
[2019-10-27] MEDS: polyethylene glycol 3350 Pkt 17 gm PO ×2 (08:37→17:54)
[2019-10-27] MEDS: pantoprazole DR 40 mg Tablet PO (08:38)
[2019-10-27] MEDS: metoprolol tartrate 25 mg Tablet PO ×2 (08:38→17:54)
[2019-10-27] MEDS: amlodipine 10 mg Tablet PO (08:38)
[2019-10-27] MEDS: ALPRAZolam 0.25 mg Tablet PO ×2 (08:48→19:29)
[2019-10-27 10:14] LABS: Influenza A by IFA Negative (Negative); Influenza B by IFA Negative (Negative)
[2019-10-27] MEDS: levofloxacin-dextrose 5 % 750 MG/150 ML PREMIX 100 MG IV (13:25)
--- NOTE | 2019-10-27 15:15 | PM.PN ---
Subjective Subjective: Interval history: States could not sleep as she was coughing all night long. Coughed up 1 piece of phlegm, but otherwise cough is nonproductive. No other new symptoms. Vitals/I&O/Wt Last Vital Signs Temp 98.7 F 10/27/19 12:00 Pulse 90 10/27/19 15:09 Resp 20 H 10/27/19 15:09 BP 103/65 10/27/19 12:00 Pulse Ox 97 10/27/19 15:09 10/27/19 10/27/19 10/27/19 06:59 14:59 22:59 Intake Total 120 / 120 Balance 120 / 120 Weight last 48 hrs Weight 72.575 kg Physical Exam Const: COMMON NORMALS: no acute distress and patient oriented x3 GENERAL APPEARANCE: anxious HENMT: COMMON NORMALS: oropharynx normal Neck/C-Spine: COMMON NORMALS: no JVD Resp: COMMON NORMALS: normal respiratory effort AUSCULTATION: bronchial breath sounds and bronchovesicular breath sounds Cardio: COMMON NORMALS: no JVD, regular rhythm, S1 normal heart sound present, S2 normal heart sound present and No murmurs present (Cardio) RHYTHM: regular rhythm HEART SOUNDS: S1 normal heart sound present and S2 normal heart sound present GI: COMMON NORMALS: Normal to inspection, nondistended, normoactive bowel sounds present, Soft to palpation and non-tender PALPATION: Yes Soft to palpation Extremity: COMMON NORMALS: no joint enlargement and no pedal edema Neuro: COMMON NORMALS: patient oriented x3 and moves all extremities Skin: COMMON NORMALS: no rashes or lesions noted GENERAL SKIN EXAM: no rashes or lesions noted Data : 10/27/19 03:21 10/27/19 03:21 Micro: Microbiology 10/26/19 20:45 Gram Stain - Final Sputum - Expectorated Sputum 10/26/19 21:33 Blood Culture - Preliminary Blood SPECIMEN COLLECTED 10/26/19 21:29 Blood Culture - Preliminary Blood SPECIMEN COLLECTED A&P Assessment and plan (1) Sinus tachycardia: This appears to have responded to metoprolol. Still occasional tachycardia but not as pronounced. At home it was 120s to 130s. Does not appear to have a clear cause. Initially atrial flutter machine read on 1 of the EKGs, however, this does not clearly appear to be flutter. With leukocytosis. She does get quite anxious, but this does not appear to be just anxiety. Discussed with her symptoms may be secondary to her chronic lung disease as she has significant fibrosis, bronchiectasis, although at the same time has leukocytosis together with a sinus tachycardia. She appears to be at baseline oxygen, however, reports coughing and coughing up some yellow sputum which is a change in color from the usual white. Discussed with her my concern is for pulmonary infection, and currently given sinus tachycardia, leukocytosis cannot entirely rule out sepsis, although this is less likely. Requested sputum and blood cultures. Levaquin. Continue metoprolol, although we switched to twice daily dosing. Xanax for episodes of anxiety. She has no chest pain. EKG does show a few nonspecific changes, troponin is mildly elevated. Overall she would benefit from stress testing although non-STEMI does not appear likely at this stage. Assess TTE. Status: Acute (2) Bronchiectasis: Concern for pulmonary infection with persistent cough. Sinus tachycardia. No obvious PNA, no PE. Having difficult time bringing up sputum. At this time continue Levaquin. Breathing treatments. Will add mucomyst. Flutter valve. If persistent symptoms and tachycardia, consider evaluation by pulmonology. Will request 1,3,B-D Glucan, galactomannan. Urine bacterial antigens. Status: Acute (3) Dehydration: Received IV fluid. Encourage oral hydration. Status: Acute (4) Anxiety: Xanax as needed. Discussed with her and her unfortunately severe anxiety can often accompany chronic lung disease. Encouraged her to follow-up with [facility] and she states she will look into making appointment. Status: Acute (5) Hypertension: Monitor blood pressures. Started on amlodipine. Continue metoprolol. Status: Acute (6) Interstitial pulmonary fibrosis: Follows with vp ancillary in [place]. Continues on prednisone 10 mg. Status: Acute (7) COPD (chronic obstructive pulmonary disease): Oxygen dependent currently on 3 L nasal cannula Status: Acute Attestations Medical Necessity Statement*: Continue admission for assessment and management of unexplained resting tachycardia, leukocytosis, posssible sepsis, with underlying severe lung diease. 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
--- NOTE | 2019-10-27 15:24 | USCV_ITS ---
Manisha Gautam Age: 74 Gender: F : 1945 Exam Date: 10/27/2019 15:29 Ordering Phys: Son De Leon MD Technologist: Sharmila Kang Exam Location: [facility] [place] Indication: Unexplained sinus tachycardia BP: 103 / 65 HR: 93 Rhythm: Sinus Technical Quality: Technically difficult study MEASUREMENTS (Male / Female) Normal Values 2D ECHO LV Diastolic Diameter PLAX 2.9 cm 4.2 - 5.9 / 3.9 - 5.3 cm LV Systolic Diameter PLAX 1.8 cm LV Chamber Size 3.3 cm IVS Diastolic Thickness 1.5 cm 0.6 - 1.0 / 0.6 - 0.9 cm IVS Systolic Thickness 2.0 cm LVPW Diastolic Thickness 1.0 cm 0.6 - 1.0 / 0.6 - 0.9 cm LVPW Systolic Thickness 1.4 cm RV Chamber Size 3.2 cm LVOT Diameter 1.9 cm LV Ejection Fraction 2D Teich 69.6 % LA Diameter 3.1 cm LA Width 2.6 cm LA Height 5.8 cm RA Width 2.6 cm RA Height 4.9 cm Aorta at Sinotubular Diameter 2.7 cm M-MODE LV Diastolic Diameter MM 4.0 cm 4.2 - 5.9 / 3.9 - 5.3 cm LV Systolic Diameter MM 2.2 cm LV Ejection Fraction MM Teich 77.8 % IVS Diastolic Thickness MM 1.2 cm 0.6 - 1.0 / 0.6 - 0.9 cm IVS Systolic Thickness MM 1.9 cm LVPW Diastolic Thickness MM 1.2 cm 0.6 - 1.0 / 0.6 - 0.9 cm LVPW Systolic Thickness MM 1.3 cm RV Diastolic Diameter MM 1.8 cm Aortic Annulus Diameter 3.0 cm LA Ao Ratio MM 1.1 MV E Point Septal Separation 0.4 cm DOPPLER AV Peak Velocity 105.0 cm/s LVOT Peak Velocity 52.0 cm/s AV Area Cont Eq vti 1.5 cm squared AV Area Cont Eq pk 1.4 cm squared MV Area PHT 2.4 cm squared Mitral E to A Ratio 0.6 MV E' Velocity 4.0 cm/s Mitral E to MV E' Ratio 10.1 Mitral E to LV E' Lateral Ratio 11.4 Mitral E to LV E' Septal Ratio 9.2 TR Peak Velocity 369.0 cm/s TR Peak Gradient 54.5 mmHg TR Mean Velocity 284.4 cm/s TR Mean Gradient 34.9 mmHg TR Velocity Time Integral 107.8 cm TV Peak E Velocity 44.0 cm/s Right Atrial Pressure 3.0 mmHg Pulmonary Artery Systolic Pressu 57.5 mmHg PV Peak Velocity 55.0 cm/s RV Acceleration Time 0.1 s RV Ejection Time 0.2 s RV AcT/ET 0.2 FINDINGS Left Ventricle Normal left ventricular size and systolic function, EF 70%. Mild left ventricular hypertrophy. No regional wall motion abnormalities. Grade I/IV diastolic dysfunction (abnormal relaxation filling pattern), normal to mildly elevated filling pressures. Right Ventricle The right ventricle is normal in size and function. Right Atrium The right atrium is normal in size. Left Atrium The left atrium is normal in size. Mitral Valve Thickened mitral valve. Mild mitral annular calcification. Aortic Valve No gross abnormality noted Tricuspid Valve [id number] tricuspid valve regurgitation. Moderate pulmonary hypertension with an estimated pulmonary artery peak systolic pressure of 58 mmHg Pulmonic Valve Structurally normal pulmonic valve without significant stenosis. There is no pulmonic regurgitation. Pericardium Normal pericardium without effusion. Aorta Normal ascending aorta dimension. CONCLUSIONS Normal left ventricular size and systolic function, EF 70%. Mild left ventricular hypertrophy. No regional wall motion abnormalities. Grade I/IV diastolic dysfunction (abnormal relaxation filling pattern), normal to mildly elevated filling pressures. [id number] tricuspid valve regurgitation. Moderate pulmonary hypertension with an estimated pulmonary artery peak systolic pressure of 58 mmHg. Thickened mitral valve. Mild mitral annular calcification. There is no pericardial effusion. Technically difficult study because of the poor ultrasonic window. No previous study is available for comparison. Dr John Moreno MD [facility] (Electronically Signed) Final Date: 27 October 2019 18:40 S
[2019-10-28] VITALS (11 sets, daily range): BP systolic 107–114; BP diastolic 65–74; PULSE 78–94; RESP 18–24; TEMP 36.4–36.7; O2SAT 93–98
[2019-10-28] MEDS: enoxaparin 40 mg/0.4 mL Syringe SUBCUT (01:24)
[2019-10-28] MEDS: ipratropium-albuterol 3 mL Neb INHALATION ×4 (02:54→21:08)
[2019-10-28 05:14] LABS: Basophils % 0.2 %; Eosinophils # 0.4 10^3/uL (0.0-0.8); Eosinophils % 3.3 %; Hematocrit 47.7 % (37.0-47.0); Hemoglobin 14.9 g/dL (11.5-15.3); Lymphocytes # 3.7 10^3/uL (0.8-4.8); Lymphocytes % 29.5 %; Mean Corpuscular HGB Conc 31.2 g/dL (30.0-36.0); Mean Corpuscular Volume 96.2 fL (81-99); Mean Platelet Volume 11.2 fL (7.4-10.4); Monocytes % 7.7 %; Neutrophils # 7.4 10^3/uL (1.8-7.7); Neutrophils % 59.1 %; Nucleated Red Blood Cells % 0 %; Platelet Count 180 10^3/cmm (130-400); Red Blood Count 4.96 10^6/uL (4.1-5.3); Red Cell Distribution Width 13.4 % (12.1-15.1); White Blood Count 12.5 10^3/uL (4.0-10.0)
[2019-10-28 05:32] LABS: Alanine Aminotransferase 30 U/L (0-33); Albumin Level 3.8 g/dL (3.5-5.2); Alkaline Phosphatase 58 IU/L (35-105); Anion Gap 12.6 (5-19); Aspartate Amino Transferase 25 U/L (0-32); Blood Urea Nitrogen 20 mg/dL (8-23); Calcium 9.9 mg/dL (8.5-10.5); Carbon Dioxide 34 mmol/L (22-29); Chloride 97 mmol/L (98-107); Globulin 3.1 g/dL (1.3-4.6); Glucose 105 mg/dL (65-115); Osmolality Calculated 287 mOsm/kg (285-295); Potassium 3.6 mmol/L (3.5-5.1); Sodium 140 mmol/L (136-145); Total Bilirubin 0.5 mg/dL (0.15-1.2); Total Protein 6.9 g/dL (6.6-8.7)
[2019-10-28] MEDS: amlodipine 10 mg Tablet PO (09:04)
[2019-10-28] MEDS: bisacodyl 10 mg Supp PR (09:04)
[2019-10-28] MEDS: pantoprazole DR 40 mg Tablet PO (09:04)
[2019-10-28] MEDS: ALPRAZolam 0.25 mg Tablet PO (09:04)
[2019-10-28] MEDS: docusate sodium 100 mg Capsule PO (09:04)
[2019-10-28] MEDS: aspirin 81 mg EC Tablet PO (09:05)
[2019-10-28] MEDS: polyethylene glycol 3350 Pkt 17 gm PO (09:05)
[2019-10-28] MEDS: metoprolol tartrate 25 mg Tablet PO ×2 (09:05→17:52)
[2019-10-28] MEDS: predniSONE 10 mg Tablet PO (09:05)
[2019-10-28] MEDS: levofloxacin-dextrose 5 % 750 MG/150 ML PREMIX 100 MG IV (14:35)
--- NOTE | 2019-10-28 15:44 | PC.RESP ---
Pulmonary Rehab information sent to patient.
--- NOTE | 2019-10-28 16:57 | PM.PN ---
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 [place] Currently has complaints of generalized weakness, and persist shortness of breath, afebrile overnight, no chest pain Vitals/I&O/Wt Last Vital Signs Temp 98.1 F 10/28/19 15:03 Pulse 86 10/28/19 15:03 Resp 20 H 10/28/19 15:03 BP 112/70 10/28/19 15:03 Pulse Ox 93 10/28/19 15:03 10/28/19 10/28/19 10/28/19 06:59 14:59 22:59 Intake Total 600 / 600 Output Total 200 / 400 4 / 4 Balance -200 / 350 596 / 596 Physical Exam Const: COMMON NORMALS: no acute distress and patient oriented x3 HENMT: COMMON NORMALS: normocephalic HEAD & SCALP: normocephalic Neck/C-Spine: COMMON NORMALS: no JVD Resp: COMMON NORMALS: normal respiratory effort, No retractions and No use of accessory muscles AUSCULTATION: wheezes Cardio: COMMON NORMALS: no JVD, regular rate, regular rhythm, S1 normal heart sound present and S2 normal heart sound present RATE: regular rate RHYTHM: regular rhythm HEART SOUNDS: S1 normal heart sound present and S2 normal heart sound present GI: COMMON NORMALS: Normal to inspection, nondistended, normoactive bowel sounds present, Soft to palpation, non-tender, No hepatosplenomegaly present, no masses and no bruits PALPATION: Yes Soft to palpation and Yes No hepatosplenomegaly present Extremity: COMMON NORMALS: capillary refill normal, no clubbing, cyanosis or edema, no calf tenderness and no pedal edema Neuro: COMMON NORMALS: patient oriented x3 Psych: COMMON NORMALS: mental status grossly normal Data : 10/28/19 04:46 10/28/19 04:46 Micro: Microbiology 10/26/19 20:45 Gram Stain - Final Sputum - Expectorated Sputum Sputum Culture - Preliminary 10/28/19 03:10 Legionella Urinary Antigen - Final Urine,Voided Bacterial Antigens - Final 10/26/19 21:33 Blood Culture - Preliminary Blood NEGATIVE TO DATE 10/26/19 21:29 Blood Culture - Preliminary Blood NEGATIVE TO DATE A&P Assessment and plan (1) Idiopathic pulmonary fibrosis: -Likely exacerbation of idiopathic pulmonary fibrosis -Review of patient's CT scan shows significant pulmonary fibrosis -Patient states that she follows up with a lollypop machine operator in [place], but cannot remember the last time she was up there to her office, had hospitalization at [facility] for 5 days -Likely patient is having an acute exacerbation of her idiopathic pulmonary fibrosis -We will increase her steroid dose to 80 every 8 hours, monitor for the next 24 hours -I spoke to patient about following up with pulmonary here in [place], she agrees -I advised patient given her respiratory status and generalized weakness, short-term rehab would be a good option for her, she will think about this -I advised patient that with his idiopathic pathic pulmonary fibrosis, she might have a cyclic process of readmissions for exacerbations, it would be a good idea for her to consider assisted placement, and consider future directives, she stated she would think about this Status: Acute (2) Sinus tachycardia: Likely secondary respiratory failure, likely will require Holter monitor on discharge This appears to have responded to metoprolol. Still occasional tachycardia but not as pronounced. At home it was 120s to 130s. Does not appear to have a clear cause. Initially atrial flutter machine read on 1 of the EKGs, however, this does not clearly appear to be flutter. With leukocytosis. She does get quite anxious, but this does not appear to be just anxiety. Discussed with her symptoms may be secondary to her chronic lung disease as she has significant fibrosis, bronchiectasis, although at the same time has leukocytosis together with a sinus tachycardia. She appears to be at baseline oxygen, however, reports coughing and coughing up some yellow sputum which is a change in color from the usual white. Discussed with her my concern is for pulmonary infection, and currently given sinus tachycardia, leukocytosis cannot entirely rule out sepsis, although this is less likely. Requested sputum and blood cultures. Continue Levaquin, although infectious etiology unlikely Continue metoprolol, although we switched to twice daily dosing. Xanax for episodes of anxiety. She has no chest pain. EKG does show a few nonspecific changes, troponin is mildly elevated. Overall she would benefit from stress testing although non-STEMI does not appear likely at this stage., But as outpatient Echocardiogram shows EF of 70%, mild LVH, no regional wall motion abnormalities, grade 1 out of 4 diastolic dysfunction Status: Acute (3) Bronchiectasis: Concern for pulmonary infection with persistent cough. Sinus tachycardia. No obvious PNA, no PE. Having difficult time bringing up sputum. At this time continue Levaquin. Breathing treatments. Will add mucomyst. Flutter valve. If persistent symptoms and tachycardia, consider evaluation by pulmonology. Will request 1,3,B-D Glucan, galactomannan. Urine bacterial antigens within normal limits Status: Acute (4) Dehydration: Received IV fluid. Encourage oral hydration. Status: Acute (5) Anxiety: Xanax as needed. Discussed with her and her unfortunately severe anxiety can often accompany chronic lung disease. Encouraged her to follow-up with [facility] and she states she will look into making appointment. Status: Acute (6) Hypertension: Monitor blood pressures. Started on amlodipine. Continue metoprolol. Status: Acute (7) COPD (chronic obstructive pulmonary disease): Oxygen dependent currently on 3 L nasal cannula Status: Acute Additional A&P Information Sinus tachycardia PE ruled out No active pneumonia Patient takes metoprolol succinate at home My differential would include anxiety, respiratory failure secondary to pulmonary fibrosis Stop fluids, continue antidepressants EKG shows sinus tachycardia without ischemic or infarctive changes Hypertensive urgency Continue her metoprolol succinate, I would add amlodipine 10 mg I believe hypotension is secondary to chronic use of steroids and active anxiety COPD without acute exacerbation, oxygen dependent currently on 3 L nasal cannula saturating well ABG reveals normal pH Goals of care discussed with the patient and her DNR/DNI Cardiac diet DVT prophylaxis Attestations Medical Necessity Statement*: Patient requires hospitalization secondary to exacerbation of idiopathic pulmonary fibrosis sinus tachycardia, generalized weakness Coding Level of Care Code Acute Judicial Administrative Assistant for [facility] Diagnoses Idiopathic pulmonary fibrosis J84.112 Sinus tachycardia R00.0 Bronchiectasis J47.9 Dehydration E86.0 Anxiety F41.9 Hypertension I10 COPD (chronic obstructive pulmonary disease) J44.9
--- NOTE | 2019-10-28 17:11 | PC.OT ---
OT note: Pt was on the phone and needed time upon OT's arrival. OT evaluation not completed.
[2019-10-29] VITALS (10 sets, daily range): BP systolic 120–131; BP diastolic 73–82; PULSE 69–91; RESP 16–22; TEMP 36.4–37.1; O2SAT 92–98
[2019-10-29] MEDS: ipratropium-albuterol 3 mL Neb INHALATION ×3 (02:27→15:08)
[2019-10-29] MEDS: enoxaparin 40 mg/0.4 mL Syringe SUBCUT (02:43)
[2019-10-29 04:31] LABS: Basophils % 0.2 %; Hematocrit 45.8 % (37.0-47.0); Hemoglobin 14.4 g/dL (11.5-15.3); Lymphocytes % 19.8 %; Mean Corpuscular HGB Conc 31.4 g/dL (30.0-36.0); Mean Corpuscular Hemoglobin 30.6 pg (28.0-34.0); Mean Corpuscular Volume 97.2 fL (81-99); Mean Platelet Volume 11.8 fL (7.4-10.4); Monocytes # 0.2 10^3/uL (0.2-0.9); Monocytes % 1.7 %; Neutrophils # 7.7 10^3/uL (1.8-7.7); Neutrophils % 77.7 %; Nucleated Red Blood Cells % 0 %; Platelet Count 181 10^3/cmm (130-400); Red Blood Count 4.71 10^6/uL (4.1-5.3); Red Cell Distribution Width 13.2 % (12.1-15.1); White Blood Count 9.9 10^3/uL (4.0-10.0)
[2019-10-29 05:10] LABS: Magnesium 2.3 mg/dL (1.7-2.3); Phosphorus 3.3 mg/dL (2.5-4.5)
[2019-10-29 05:14] LABS: Alanine Aminotransferase 30 U/L (0-33); Albumin Level 3.8 g/dL (3.5-5.2); Alkaline Phosphatase 58 IU/L (35-105); Anion Gap 11.5 (5-19); Aspartate Amino Transferase 19 U/L (0-32); Blood Urea Nitrogen 17 mg/dL (8-23); Calcium 9.9 mg/dL (8.5-10.5); Carbon Dioxide 30 mmol/L (22-29); Chloride 102 mmol/L (98-107); Globulin 2.8 g/dL (1.3-4.6); Glucose 148 mg/dL (65-115); Osmolality Calculated 287 mOsm/kg (285-295); Potassium 4.5 mmol/L (3.5-5.1); Sodium 139 mmol/L (136-145); Total Bilirubin 0.4 mg/dL (0.15-1.2); Total Protein 6.6 g/dL (6.6-8.7)
[2019-10-29] MEDS: metoprolol tartrate 25 mg Tablet PO (08:53)
[2019-10-29] MEDS: polyethylene glycol 3350 Pkt 17 gm PO (08:53)
[2019-10-29] MEDS: bisacodyl 10 mg Supp PR (08:53)
[2019-10-29] MEDS: amlodipine 10 mg Tablet PO (08:53)
[2019-10-29] MEDS: aspirin 81 mg EC Tablet PO (08:53)
[2019-10-29] MEDS: docusate sodium 100 mg Capsule PO (08:53)
[2019-10-29] MEDS: pantoprazole DR 40 mg Tablet PO (08:53)
[2019-10-29] MEDS: ALPRAZolam 0.25 mg Tablet PO (08:57)
--- NOTE | 2019-10-29 10:32 | PC.SOCIAL ---
*IMM*Patient received Important Message from Medicare. Original is in the chart and Copy gave to patient.
--- NOTE | 2019-10-29 13:21 | PC.NURSE ---
patient's daughter called and said that patient is tested for COVID and she should have been told. She said [facility] called her and said they were expecting her. Daughter was very upset and said patient is supposed to be going to [employer]. check writer explained that I talked to Dr Ortega this morning and the plan was to try to go to [facility]. She requested call her. Semiconductor Technician called Wilver STROUD and asked him to call daughter back.
--- NOTE | 2019-10-29 13:38 | PC.NURSE ---
Patient states she takes two breathing treatments at home Breo Ellipta and Incruse and is requesting to take them. Product Manufacturing Professional notified Dr Ortega. Patient had them in room with her.
--- NOTE | 2019-10-29 13:41 | PC.NURSE ---
Per Dr Ortega, Ok to continue home inhalers. residential mortgage underwriter put orders in.
--- NOTE | 2019-10-29 13:44 | PM.PN ---
Subjective Subjective: Interval history: Patient tells me that she had a good night, but when they did her COVID-19 testing this morning, it aggravated her respiratory status, currently doing better, no fevers, no chills, still reports shortness of breath with exertion, still waiting on placement at [facility] rehab, patient requires COVID-19 testing prior to this. According to patient she sees a emergency veterinarian Dr. Rowe, in [place], last follow-up was a few months ago, doctor was trying to get her onto what it sounds like ofev, but initially insurance denied, then approved, and she was supposed to have the medication but she has not heard back from her physician's office. I did reach out to Dr. Rowe office for some more information, but I have not heard back from them as of yet. Vitals/I&O/Wt Last Vital Signs Temp 98.2 F 10/29/19 11:42 Pulse 76 10/29/19 11:42 Resp 22 H 10/29/19 11:42 BP 120/76 10/29/19 11:42 Pulse Ox 95 10/29/19 11:42 10/28/19 10/29/19 10/29/19 22:59 06:59 14:59 Intake Total 400 / 1000 500 / 1500 720 / 720 Output Total 2 / 6 Balance 398 / 994 500 / 1494 720 / 720 Physical Exam Const: COMMON NORMALS: no acute distress and patient oriented x3 HENMT: COMMON NORMALS: normocephalic HEAD & SCALP: normocephalic Neck/C-Spine: COMMON NORMALS: no JVD Resp: COMMON NORMALS: normal respiratory effort and No retractions AUSCULTATION: wheezes Cardio: COMMON NORMALS: no JVD, regular rate, regular rhythm, S1 normal heart sound present and S2 normal heart sound present RATE: regular rate RHYTHM: regular rhythm HEART SOUNDS: S1 normal heart sound present and S2 normal heart sound present GI: COMMON NORMALS: Normal to inspection, nondistended, normoactive bowel sounds present, Soft to palpation, non-tender, No hepatosplenomegaly present, no masses and no bruits PALPATION: Yes Soft to palpation and Yes No hepatosplenomegaly present Extremity: COMMON NORMALS: capillary refill normal, no clubbing, cyanosis or edema, no calf tenderness and no pedal edema Neuro: COMMON NORMALS: patient oriented x3 Psych: COMMON NORMALS: mental status grossly normal Data : 10/29/19 03:50 10/29/19 03:50 Micro: Microbiology 10/26/19 20:45 Gram Stain - Final Sputum - Expectorated Sputum Sputum Culture - Preliminary 10/28/19 03:10 Legionella Urinary Antigen - Final Urine,Voided Bacterial Antigens - Final A&P Assessment and plan (1) Idiopathic pulmonary fibrosis: -Likely exacerbation of idiopathic pulmonary fibrosis -Review of patient's CT scan shows significant pulmonary fibrosis -Patient states that she follows up with a emergency veterinarian in [place], but cannot remember the last time she was up there to her office, had hospitalization at [facility] for 5 days, her emergency veterinarian has been trying to get her on what it sounds like ofev -Likely patient is having an acute exacerbation of her idiopathic pulmonary fibrosis -Continue Solu-Medrol 80 mg every 8 hours, likely de-escalate in the next 24 to 48 hours -Continue p.o. Levaquin -I advised patient given her respiratory status and generalized weakness, short-term rehab would be a good option for her, she has agreed to [facility] snf, awaiting placement -I advised patient that with his idiopathic pathic pulmonary fibrosis, she might have a cyclic process of readmissions for exacerbations, it would be a good idea for her to consider [facility] placement, and consider future directives, she stated she would think about this Status: Acute (2) Sinus tachycardia: Likely secondary respiratory failure, likely will require Holter monitor on discharge This appears to have responded to metoprolol. Still occasional tachycardia but not as pronounced. At home it was 120s to 130s. Does not appear to have a clear cause. Initially atrial flutter machine read on 1 of the EKGs, however, this does not clearly appear to be flutter. With leukocytosis. She does get quite anxious, but this does not appear to be just anxiety. Discussed with her symptoms may be secondary to her chronic lung disease as she has significant fibrosis, bronchiectasis, although at the same time has leukocytosis together with a sinus tachycardia. She appears to be at baseline oxygen, however, reports coughing and coughing up some yellow sputum which is a change in color from the usual white. Discussed with her my concern is for pulmonary infection, and currently given sinus tachycardia, leukocytosis cannot entirely rule out sepsis, although this is less likely. Requested sputum and blood cultures. Continue Levaquin, although infectious etiology unlikely Continue metoprolol, although we switched to twice daily dosing. Xanax for episodes of anxiety. She has no chest pain. EKG does show a few nonspecific changes, troponin is mildly elevated. Overall she would benefit from stress testing although non-STEMI does not appear likely at this stage., But as outpatient Echocardiogram shows EF of 70%, mild LVH, no regional wall motion abnormalities, grade 1 out of 4 diastolic dysfunction Status: Acute (3) Bronchiectasis: Concern for pulmonary infection with persistent cough. Sinus tachycardia. No obvious PNA, no PE. Having difficult time bringing up sputum. At this time continue Levaquin. Breathing treatments. Will add mucomyst. Flutter valve. If persistent symptoms and tachycardia, consider evaluation by pulmonology. Will request 1,3,B-D Glucan, galactomannan. Urine bacterial antigens within normal limits Status: Acute (4) Dehydration: Received IV fluid. Encourage oral hydration. Status: Acute (5) Anxiety: Xanax as needed. Discussed with her and her unfortunately severe anxiety can often accompany chronic lung disease. Encouraged her to follow-up with [facility] and she states she will look into making appointment. Status: Acute (6) Hypertension: Monitor blood pressures. Started on amlodipine. Continue metoprolol. Status: Acute (7) COPD (chronic obstructive pulmonary disease): Oxygen dependent currently on 3 L nasal cannula Status: Acute Additional A&P Information Sinus tachycardia PE ruled out No active pneumonia Patient takes metoprolol succinate at home My differential would include anxiety, respiratory failure secondary to pulmonary fibrosis Stop fluids, continue antidepressants EKG shows sinus tachycardia without ischemic or infarctive changes Hypertensive urgency resolved Continue her metoprolol succinate, amlodipine 10 mg COPD without acute exacerbation, oxygen dependent currently on 3 L nasal cannula saturating well ABG reveals normal pH Goals of care discussed with the patient and her DNR/DNI Cardiac diet DVT prophylaxis Attestations Medical Necessity Statement*: Patient requires continued hospitalization due to exacerbation of idiopathic pulmonary fibrosis, awaiting placement to short-term rehab Coding Level of Care Code Acute Pierogi Maker for g Fwd Diagnoses Idiopathic pulmonary fibrosis J84.112 Sinus tachycardia R00.0 Bronchiectasis J47.9 Dehydration E86.0 Anxiety F41.9 Hypertension I10 COPD (chronic obstructive pulmonary disease) J44.9
[2019-10-29] MEDS: levoFLOXacin 750 mg Tablet PO (14:11)
--- NOTE | 2019-10-29 14:19 | PC.NURSE ---
patient's 2 home inhalers sent to pharmacy
--- NOTE | 2019-10-29 15:54 | PM.DCS ---
Discharge Providers Date of Admission: 10/26/19 22:29 Date of Discharge: October 29, 2019 Attending Provider at Admission: Rosa Garg MD Attending Provider at Discharge: Vel Ortega MD Primary Care Provider: Yonny Arias Diagnoses at Discharge Discharge Diagnosis (1) Idiopathic pulmonary fibrosis: Status: Acute (2) Sinus tachycardia: Status: Acute (3) Bronchiectasis: Status: Acute (4) Dehydration: Status: Acute (5) Anxiety: Status: Acute (6) Hypertension: Status: Acute (7) COPD (chronic obstructive pulmonary disease): Status: Acute Reason for Visit Reason for Visit: SOB Hospital Course Discharge Summary: This is a 74-year-old female with a past medical history of idiopathic pulmonary fibrosis, oxygen pendant COPD 3 L, chronic steroid dependent 10 mg, palmar hypertension, who presents to [facility] due to complaints of palpitations and shortness of breath. For hospitalization, she was found to have sinus tachycardia heart rates in the 120s, CTA of the chest did not reveal pulmonary embolism, telemetry monitoring during her hospitalization had no significant atrial fibrillation events, EKGs showed sinus tachycardia, echocardiogram showed a EF of 75%, mild LVH, no regional wall motion abnormalities, grade 1 of 4 diastolic dysfunction, moderate pulmonary pretension at 58mmHg. Patient's sinus tachycardia resolved in the metoprolol 25 twice daily. Likely the etiology of patient's acute on chronic respiratory failure secondary to idiopathic pulmonary fibrosis, anxiety, and dehydration. For patient's idiopathic pulmonary fibrosis, patient had acute on chronic exacerbation of IPF, review of patient's CT scan shows extensive pulmonary fibrosis, her Pulmonary arterial pressure was 58 mmHg, patient recently had a hospitalization at [facility] for exacerbation of pulmonary fibrosis back in August, requiring 5 days hospital stay, followed up with a short-term stay at [facility] rehab. During her inpatient stay, patient received IV hydration, IV Solu-Medrol, Levaquin, she clinically improved, she remained on 4 L oxygen. But during her hospitalization, patient would have episodes of shortness of breath with exertion, generalized weakness, which made her disposition back to home difficult. I advised patient that given her severe idiopathic pulmonary fibrosis, likely her respiratory status will slowly decline, and her generalized weakness will persist, she will require more assistance of daily living, I feel that she would benefit from a short-term rehab stay again. Patient is DNR/DNI. I confirmed with the tray checker office that they are working on Ofev approval, and still waiting approval, and they will reach out to her if approved. After discussion of risks and benefits, patient agreed to short-term rehab stay at [facility]. Patient is to follow-up with her tray checker in 1 to 2 weeks, prescribed a prednisone taper, and Levaquin for 5 remaining days. Patient was advised she did have worsening shortness of breath, fevers, chest pain, emergency room. Patient during hospitalization was found to have mild troponin elevations, and nonspecific EKG changes, likely related to her respiratory failure, but cannot rule out cardiac etiology, echocardiogram did not show any wall motion abnormalities, or significant changes in her EF, patient was advised to follow-up with cardiology for consideration of stress testing. Patient was discharged on aspirin and statin. Physical Exam Const: COMMON NORMALS: no acute distress and patient oriented x3 HENMT: COMMON NORMALS: normocephalic HEAD & SCALP: normocephalic Neck/C-Spine: COMMON NORMALS: no JVD Resp: COMMON NORMALS: normal respiratory effort, No retractions, No use of accessory muscles and clear to auscultation bilaterally AUSCULTATION: clear to auscultation bilaterally Cardio: COMMON NORMALS: no JVD, regular rate, regular rhythm, S1 normal heart sound present and S2 normal heart sound present RATE: regular rate RHYTHM: regular rhythm HEART SOUNDS: S1 normal heart sound present and S2 normal heart sound present GI: COMMON NORMALS: Normal to inspection, nondistended, normoactive bowel sounds present, Soft to palpation, non-tender, No hepatosplenomegaly present, no masses and no bruits PALPATION: Yes Soft to palpation and Yes No hepatosplenomegaly present Extremity: COMMON NORMALS: capillary refill normal, no clubbing, cyanosis or edema, no calf tenderness and no pedal edema Neuro: COMMON NORMALS: patient oriented x3 Psych: COMMON NORMALS: mental status grossly normal Discharge Data Data Completed and Pending: Completed Studies During Hospitalization Category Date Time Status CT angio chest PE protcl [id number] Stat Cat Scan 10/25/19 18:29 Completed XR chest 1V micheal ble [id number] Stat Exams 10/25/19 16:23 Completed CV echo complete* [id number] Routine Ultrasound 10/27/19 15:24 Completed Pending at discharge Category Date Time Status Blood Culture Sta t Lab 10/26/19 21:33 Results Coronavirus Lab T est PTC Stat Lab 10/29/19 10:24 Received Magnesium AM LABS Lab 10/30/19 04:00 Ordered Magnesium AM LABS Lab 10/31/19 04:00 Ordered Miscellaneous Olga t Routine Lab 10/27/19 15:28 Ordered Miscellaneous Olga t Routine Lab 10/27/19 17:46 Received Phosphorus AM LAB S Lab 10/30/19 04:00 Ordered Phosphorus AM LAB S Lab 10/31/19 04:00 Ordered Sputum Culture an d Gram Stain Routi ne Lab 10/26/19 20:45 Results Labs from last 24 hours 10/29/19 10/29/19 10/29/19 03:50 03:50 03:50 WBC 9.9 RBC 4.71 Hgb 14.4 Hct 45.8 MCV 97.2 MCH 30.6 MCHC 31.4 RDW 13.2 Plt Count 181 MPV 11.8 H Neut % (Auto) 77.7 Lymph % (Auto) 19.8 [facility] % (Auto) 1.7 Eos % (Auto) 0.0 Baso % (Auto) 0.2 Neut # (Auto) 7.7 Lymph # (Auto) 2.0 [facility] # (Auto) 0.2 Eos # (Auto) 0.0 Baso # (Auto) 0.0 Nucleated RBC % (a uto) 0 Nucleated RBCs # 0.0 Sodium 139 Potassium 4.5 Chloride 102 Carbon Dioxide 30 H Anion Gap 11.5 BUN 17 Creatinine 0.5 Glucose 148 H Calculated Osmolal ity 287 Calcium 9.9 Phosphorus 3.3 Magnesium 2.3 Total Bilirubin 0.4 AST 19 ALT 30 Alkaline Phosphata se 58 Total Protein 6.6 Albumin 3.8 Globulin 2.8 Vitals: Last Vital Signs Temp 97.7 F 10/29/19 15:21 Pulse 88 10/29/19 15:21 Resp 16 10/29/19 15:21 BP 131/76 10/29/19 15:21 Pulse Ox 92 10/29/19 15:21 Discharge Plan Discharge Patient Disposition: Xfer SNF Condition: Stable Prescriptions: New Miralax 17 gram Powder In Packet 17 g PO DAILY 30 Days Qty: 30 RF: 0 alprazolam 0.25 mg Tablet 0.25 mg PO DAILY PRN (Reason: Anxiety) 7 Days Qty: 7 RF: 0 amlodipine 10 mg Tablet 10 mg PO DAILY 30 Days Qty: 30 RF: 0 levofloxacin 750 mg Tablet 750 mg PO DAILY@1500 5 Days Qty: 5 RF: 0 prednisone 10 mg tablet See Rx Instructions .ROUTE .COMPLEX Qty: 100 RF: 0 Protonix 40 mg tablet,delayed release (DR/EC) 40 mg PO DAILY 30 Days Qty: 30 RF: 0 metoprolol tartrate 25 mg Tablet 25 mg PO BID 30 Days Qty: 60 RF: 0 aspirin 81 mg tablet,delayed release (DR/EC) 81 mg PO DAILY 30 Days Qty: 30 RF: 0 atorvastatin 40 mg tablet 40 mg PO DAILY 30 Days Qty: 30 RF: 0 Continued omeprazole 40 mg Capsule,Delayed Release(Dr/Ec) 40 mg PO DAILY RF: 0 docusate sodium 100 mg Tablet 100 mg PO DAILY RF: 0 buspirone 15 mg Tablet 15 mg PO TID RF: 0 Adult Multivitamin Gummies 200 mcg Tablet,Chewable 200 mcg PO DAILY RF: 0 elderberry fruit and flower 460-115 mg Capsule 1 cap PO DAILY RF: 0 turmeric 400 mg Capsule 200 mg PO DAILY RF: 0 Breo Ellipta 100-25 mcg/dose Blister With Device 1 inh INHALATION DAILY RF: 0 Incruse Ellipta 62.5 mcg/actuation Blister With Device 1 inh INHALATION DAILY RF: 0 Changed prednisone 10 mg Tablets,Dose Pack 10 mg PO DAILY Qty: 0 RF: 0 Discontinued aspirin [Aspirin Low Dose] 81 mg Tablet,Delayed Release (Dr/Ec) 81 mg PO DAILY RF: 0 metoprolol succinate 25 mg Tablet Extended Release 24 Hr 25 mg PO DAILY RF: 0 Discharge Orders: Discharge Order (Routine); Ordered 10/29/19 Ordered By: Vel Ortega Referrals: Rosa Robert MD [Physician] - 1 month Discharge Diet: Cardiac Discharge Activity: Resume usual activity Activity Restrictions/Additional Instructions: -Please follow-up with [facility] in 1 week for ofev -If you have worsening shortness of breath please come back to the emergency room -Follow-up with cardiology in 1 month for consideration of stress testing Discharge Attestations Time Spent in Discharge Care*: less than 30 min Quality Metrics Clinical Quality Measures During this hospital stay, did patient experience: None Coding Level of Care Code Acute Plug Cutter for Chg Fwd Exam Comprehensive Diagnoses Idiopathic pulmonary fibrosis J84.112 Sinus tachycardia R00.0 Bronchiectasis J47.9 Dehydration E86.0 Anxiety F41.9 Hypertension I10 COPD (chronic obstructive pulmonary disease) J44.9
--- NOTE | 2019-10-29 17:44 | PC.NURSE ---
called [facility] [phone], gave report to MOLINA Morse
[2019-10-30 08:51] LABS: Coronavirus Lab Test PTC NOT DETECTED
== END 2019-10-29 17:46 | disposition skilled nursing facility (03) | DRG 308 ==
LOC: ER 20:57 → MEDSURG 22:15
PROVIDERS: Family Medicine; Internal Medicine; Admitting Provider Internal Medicine; Family Provider Nurse Practitioner Family; PCP Nurse Practitioner Family; Visit Provider Family Medicine
DX: R00.0 Tachycardia, unspecified (principal); J96.20 Acute and chronic respiratory failure, unspecified whether with hypoxia or hypercapnia; J44.1 Chronic obstructive pulmonary disease with (acute) exacerbation; J84.112 Idiopathic pulmonary fibrosis; F19.959 Other psychoactive substance use, unspecified with psychoactive substance-induced psychotic disorder, unspecified; Z66 Do not resuscitate; Z99.81 Dependence on supplemental oxygen; I27.20 Pulmonary hypertension, unspecified; I10 Essential (primary) hypertension; E86.0 Dehydration; F41.9 Anxiety disorder, unspecified; Z79.52 Long term (current) use of systemic steroids; T38.0X5A Adverse effect of glucocorticoids and synthetic analogues, initial encounter; Y92.230 Patient room in hospital as the place of occurrence of the external cause; Z20.828 Contact with and (suspected) exposure to other viral communicable diseases; I16.0 Hypertensive urgency
CPT/HCPCS: 12345; 36415; 36600; 71045; 71275; 80048; 80051; 80053; 81001; 81003; 82810; 83735; 83986; 84100; 84484; 85025; 86403; 87040; 87070; 87205; 87449; 87635; 87804; 93005; 93306; 94640; 96372; 96375; 97161; 97165; 97530; 99284; G0378; J0360; J1650; J1940; J1956; J2060; J2930; J3490; J7512; J7608; Q9967